=== PATIENT | female | born 1950 | race Caucasian/White ===

== ENCOUNTER 2025-04-07 09:06 | Day surgery (SDC) | payer MEDICARE, OTHER ==
[~2025-04-07] VITALS: Ht 167.6 cm; Wt 75.9 kg
[~2025-04-07 09:06] MED LIST: ASPI81CH PO; ATOR80 PO; CLOP75 PO; Calcium Carbon500 MG PO; Celexa20 MG PO; IPRAT-ALBUT 0.5-3 ML INH; MELA3 PO; METAMUCIL174 GM PO; MULVITMINF PO; OMEP20ER PO; Oxybutynin Chlo10 MG PO; SIMV40 PO; TEMA15 PO
[2025-04-07] MEDS ORDERED: ALBU90OI INH (09:29)
[2025-04-07 09:32] VITALS: BP 131/54
--- NOTE | 2025-04-07 09:37 | NUR ---
History, Chart, Medications and Allergies reviewed before start of procedure. Pre-Op teaching done. Pt verbalizes understanding. Patient States Post-Procedure ride home has been arranged. Patient confirms NPO status and agrees with scheduled surgery. History, Chart, Medications and Allergies reviewed before start of procedure. PATIENT HAS APHASIA DUE TO HX OF CVA, DAUGHTER AT BEDSIDE TO HELP ANSWER QUESTIONS.
--- NOTE | 2025-04-07 09:53 | NUR ---
04/07/25 0953 Cruzito Pearson MONITOR INTACT WITH CONTINUOUS PULSE OXIMETRY, CONTINUOUS END TITAL CO2, 3-LEAD EKG AND INTERMITTENT BLOOD PRESSURE.O2 VIA POM INTACT THROUGHOUT SEDATION/PROCEDURE.
[2025-04-07 10:27] VITALS: BP 111/98
--- NOTE | 2025-04-07 10:36 | NUR ---
IV REMOVED. VSS. PT WAITING TO GET DRESSED UNTIL DAUGHTER, [place], GETS HERE. RESTING IN BED QUIETLY. DENIES PN AND NAUSEA. DRINKING SIPS OF WATER.
== END 2025-04-07 11:06 | disposition home or self-care (01) ==
LOC: ORSCMMR 09:06 → ORD 10:30 → ORSCMMR 10:30
PROVIDERS: Surgery
PROC: 0DBM8ZX Excision of Descending Colon, Via Natural or Artificial Opening Endoscopic, Diagnostic (ICD-10-PCS; principal; 2025-04-07 10:30)
PROC: 0DBN8ZX Excision of Sigmoid Colon, Via Natural or Artificial Opening Endoscopic, Diagnostic (ICD-10-PCS; principal; 2025-04-07 10:30)
PROC: 0DBL8ZX Excision of Transverse Colon, Via Natural or Artificial Opening Endoscopic, Diagnostic (ICD-10-PCS; principal; 2025-04-07 10:30)
DX: K59.00 Constipation, unspecified (principal); D12.3 Benign neoplasm of transverse colon; D12.4 Benign neoplasm of descending colon; D12.5 Benign neoplasm of sigmoid colon; F41.1 Generalized anxiety disorder; K21.9 Gastro-esophageal reflux disease without esophagitis; I10 Essential (primary) hypertension; H54.8 Legal blindness, as defined in USA; F33.9 Major depressive disorder, recurrent, unspecified; H90.8 Mixed conductive and sensorineural hearing loss, unspecified; C34.90 Malignant neoplasm of unspecified part of unspecified bronchus or lung; R47.01 Aphasia; I63.9 Cerebral infarction, unspecified; Z79.02 Long term (current) use of antithrombotics/antiplatelets; Z79.899 Other long term (current) drug therapy; Z87.891 Personal history of nicotine dependence
CPT/HCPCS: 88305; J2704; J7120